=== PATIENT | female | born 1960 | race Hispanic/Latino ===

== ENCOUNTER 2016-12-27 08:52 | Outpatient (CLI) | payer OTHER ==
[2016-12-27] MEDS ORDERED: PROVENTIL IH ONE (09:46)
== END 2016-12-27 08:53 | disposition home or self-care (01) ==
LOC: PF 08:52
PROVIDERS: ATTEND Internal Medicine
DX: J44.9 Chronic obstructive pulmonary disease, unspecified (principal); F41.9 Anxiety disorder, unspecified; I73.9 Peripheral vascular disease, unspecified; G90.50 Complex regional pain syndrome I, unspecified; E07.9 Disorder of thyroid, unspecified; K21.9 Gastro-esophageal reflux disease without esophagitis; G62.9 Polyneuropathy, unspecified; Z90.49 Acquired absence of other specified parts of digestive tract
CPT/HCPCS: 94060; 94640